=== PATIENT | male | born 2000 | race Hispanic/Latino ===

== ENCOUNTER 2021-04-12 20:10 | Emergency (ER) | payer OTHER ==
[~2021-04-12] VITALS: Ht 177.8 cm; Wt 115.7 kg
== END 2021-04-12 20:36 | disposition home or self-care (01) ==
LOC: ER 20:24
DX: S91.301A Unspecified open wound, right foot, initial encounter (principal); L08.9 Local infection of the skin and subcutaneous tissue, unspecified; W22.042A Striking against wall of swimming pool causing other injury, initial encounter; Y93.11 Activity, swimming; Y92.34 Swimming pool (public) as the place of occurrence of the external cause; Z98.84 Bariatric surgery status
CPT/HCPCS: 99282

== ENCOUNTER 2021-09-01 10:42 | Emergency (ER) | payer SELFPAY ==
[~2021-09-01] VITALS: Ht 177.8 cm; Wt 115.7 kg
[2021-09-01] MEDS ORDERED: HYDROCODONE/APAP 7.5MG-325MG 1 EA TAB PO PRN (11:15)
[2021-09-01] MEDS ORDERED: LIDOCAINE 1% 5ML-MPF INJ ONE (12:00)
[2021-09-01] MEDS ORDERED: LIDOCAINE HCL 1% LOCAL INJ 20 ML VIAL ONE (12:13)
== END 2021-09-01 13:09 | disposition home or self-care (01) ==
LOC: ER 11:03
DX: S61.201A Unspecified open wound of left index finger without damage to nail, initial encounter (principal); W22.8XXA Striking against or struck by other objects, initial encounter; Y93.H3 Activity, building and construction; Y92.007 Garden or yard of unspecified non-institutional (private) residence as the place of occurrence of the external cause; Z98.84 Bariatric surgery status; F17.210 Nicotine dependence, cigarettes, uncomplicated
CPT/HCPCS: 73130; 99283; J2001

== ENCOUNTER 2022-03-04 02:15 | Emergency (ER) | payer SELFPAY ==
[~2022-03-04] VITALS: Ht 177.8 cm; Wt 97.5 kg
[2022-03-04] MEDS ORDERED: KETOROLAC TROMETHAMINE 30 MG/ML VIAL IM STA (02:24)
[2022-03-04] MEDS ORDERED: KETOROLAC TROMETHAMINE 30 MG/ML VIAL ONE (02:37)
== END 2022-03-04 03:44 | disposition home or self-care (01) ==
LOC: ER 02:25
DX: R06.00 Dyspnea, unspecified (principal); R07.89 Other chest pain; F17.210 Nicotine dependence, cigarettes, uncomplicated
CPT/HCPCS: 71045; 93005; 99283; J1885

== ENCOUNTER 2022-04-29 06:38 | Emergency (ER) | payer OTHER ==
[~2022-04-29] VITALS: Ht 177.8 cm; Wt 97.5 kg
[2022-04-29] MEDS ORDERED: KETOROLAC TROMETHAMINE 60 MG/2 ML VIAL IM ONE (07:30)
[2022-04-29] MEDS ORDERED: NAPROSYN500 MG PO (08:09)
== END 2022-04-29 08:19 | disposition home or self-care (01) ==
LOC: ER 06:44
DX: R07.89 Other chest pain (principal); D64.9 Anemia, unspecified; Z98.84 Bariatric surgery status
CPT/HCPCS: 71101; 99283; J1885